=== PATIENT | female | born 1995 | race Caucasian/White ===

== ENCOUNTER 2018-02-23 11:35 | Emergency (ER) | payer OTHER ==
[~2018-02-23] VITALS: Ht 157.5 cm; Wt 61.4 kg
[2018-02-23 11:36] VITALS: TEMP 98.3
[2018-02-23 12:12] LABS: BASO % 0.5 % (0.0-2.0); EOS % 0.5 % (0-4.0); GRAN # 5.7 (1.4-6.5); GRAN % 63.8 % (42.2-75.2); HEMATOCRIT 33.6 % (35.0-45.0); LYMPH # 2.5 (1.2-3.4); LYMPH % 28.2 % (20.0-51.0); MEAN CELL VOLUME 83 fl (80.0-95.0); MEAN CORPUSCULAR HEMOGLOBIN 27 pg (26.0-32.0); MEAN CORPUSCULAR HGB CONC 33 g/dl (33.0-37.0); MEAN PLATELET VOLUME 9.9 fl (7.4-10.4); MONO # 0.6 (0.1-0.6); MONO % 6.7 % (1.7-9.3); PLATELET COUNT 233 K/mm3 (130-400); RED BLOOD COUNT 4.03 M/mm3 (4.10-5.30); REDCELL DISTRIBUTION WIDTH-CV 16.5 % (11.5-14.5)
[2018-02-23 12:19] LABS: COLLECTION METHOD CLEAN CATCH
[2018-02-23 12:25] LABS: MUCOUS Present /lpf; PH 7 (5-8); SQUAMOUS EPITHELIAL 0-2 /hpf; URINE APPEARANCE Hazy; URINE BACTERIA None Seen /hpf; URINE BILIRUBIN Negative (NEGATIVE); URINE BLOOD Negative (NEGATIVE); URINE COLOR Yellow; URINE GLUCOSE Negative (NEGATIVE); URINE KETONE Trace (NEGATIVE); URINE LEUKOCYTE ESTERASE Negative (NEGATIVE); URINE NITRATE Negative (NEGATIVE); URINE PROTEIN(semi-quant) Negative (NEGATIVE); URINE RBC 0-2 /hpf; URINE UROBILINOGEN Negative (NEGATIVE)
[2018-02-23 14:23] VITALS: BP 123/52; PULSE 80
== END 2018-02-23 14:24 | disposition home or self-care (01) ==
LOC: COL.ER 11:35
PROVIDERS: Physician Assistant
DX: O46.91 Antepartum hemorrhage, unspecified, first trimester (principal); O99.341 Other mental disorders complicating pregnancy, first trimester; O99.331 Smoking (tobacco) complicating pregnancy, first trimester; F90.9 Attention-deficit hyperactivity disorder, unspecified type; F32.9 Major depressive disorder, single episode, unspecified; G43.909 Migraine, unspecified, not intractable, without status migrainosus; F17.210 Nicotine dependence, cigarettes, uncomplicated; Z3A.01 Less than 8 weeks gestation of pregnancy
CPT/HCPCS: J2405; J7030

== ENCOUNTER 2018-03-06 17:38 | Emergency (ER) | payer OTHER ==
[~2018-03-06] VITALS: Ht 157.5 cm; Wt 59.1 kg
[2018-03-06 17:44] VITALS: TEMP 98.9
[2018-03-06 18:23] LABS: BASO % 0.3 % (0.0-2.0); EOS # 0.1 (0.0-0.7); EOS % 0.5 % (0-4.0); GRAN # 7.1 (1.4-6.5); GRAN % 72.7 % (42.2-75.2); HEMOGLOBIN 10.3 g/dl (12.0-15.0); LYMPH # 1.9 (1.2-3.4); LYMPH % 19.7 % (20.0-51.0); MEAN CELL VOLUME 84 fl (80.0-95.0); MEAN CORPUSCULAR HEMOGLOBIN 28 pg (26.0-32.0); MEAN CORPUSCULAR HGB CONC 34 g/dl (33.0-37.0); MEAN PLATELET VOLUME 10.5 fl (7.4-10.4); MONO # 0.6 (0.1-0.6); MONO % 6.4 % (1.7-9.3); PLATELET COUNT 209 K/mm3 (130-400); RED BLOOD COUNT 3.64 M/mm3 (4.10-5.30); REDCELL DISTRIBUTION WIDTH-CV 16.2 % (11.5-14.5)
[2018-03-06 18:24] LABS: HEMATOCRIT 30.5 % (35.0-45.0)
[2018-03-06] MEDS ORDERED: VITAMIN B650 MG PO (18:28)
[2018-03-06] MEDS ORDERED: UNISOM SLEEPGEL50 MG PO (18:28)
[2018-03-06] MEDS ORDERED: PHENERGAN25 MG RC ×2 (18:29→20:37)
[2018-03-06 18:39] LABS: ALBUMIN 3.7 gm/dL (3.5-5.0); BILIRUBIN,TOTAL 0.2 mg/dL (0.0-1.0); CALCIUM 8.9 mg/dL (8.4-10.2); CREATININE, serum 0.48 mg/dL (0.52-1.25); POTASSIUM 3.2 mmol/L (3.4-5.0); TOTAL PROTEIN 6.4 gm/dL (6.4-8.2)
[2018-03-06 18:55] VITALS: BP 91/68
[2018-03-06 19:04] LABS: COLLECTION METHOD CLEAN CATCH
[2018-03-06 19:18] LABS: MUCOUS Present /lpf; PH 6 (5-8); SQUAMOUS EPITHELIAL 0-2 /hpf; URINE APPEARANCE Hazy; URINE BACTERIA None Seen /hpf; URINE BILIRUBIN Negative (NEGATIVE); URINE BLOOD Negative (NEGATIVE); URINE COLOR Yellow; URINE GLUCOSE Negative (NEGATIVE); URINE KETONE Trace (NEGATIVE); URINE LEUKOCYTE ESTERASE Negative (NEGATIVE); URINE NITRATE Negative (NEGATIVE); URINE PROTEIN(semi-quant) 1+ (NEGATIVE); URINE UROBILINOGEN Negative (NEGATIVE)
[2018-03-06] MEDS ORDERED: PHENERGAN 25 TA25 MG PO (20:37)
[2018-03-06 21:00] VITALS: PULSE 70
== END 2018-03-06 21:00 | disposition home or self-care (01) ==
LOC: COL.ER 17:38
PROVIDERS: Emergency Medicine
DX: O21.9 Vomiting of pregnancy, unspecified (principal); O26.891 Other specified pregnancy related conditions, first trimester; Z3A.08 8 weeks gestation of pregnancy; E86.0 Dehydration
CPT/HCPCS: J0780; J1200; J2405; J7030

== ENCOUNTER → 2019-06-06 | Outpatient (CLI) | payer OTHER ==
[~2019-06-06] MED LIST: ALBUTEROL SULFAT3 M3 IH; CEPHALEXIN500 M1 PO; FLONASEALLERGY NS; PHENERGAN 25 TA25 MG PO; PHENERGAN25 MG RC; PYRIDIUM200 M1 PO; SKYLA13.5 MG IY; UNISOM SLEEPGEL50 MG PO; VITAMIN B650 MG PO
== END ==
LOC: COL.CARD 09:25
DX: G40.309 Generalized idiopathic epilepsy and epileptic syndromes, not intractable, without status epilepticus (principal); R41.89 Other symptoms and signs involving cognitive functions and awareness; G43.719 Chronic migraine without aura, intractable, without status migrainosus

== ENCOUNTER 2019-08-15 16:59 | Outpatient (CLI) | payer OTHER ==
[~2019-08-15] VITALS: Ht 152.4 cm; Wt 59.1 kg
[2019-08-15 17:05] VITALS: BP 108/69; PULSE 106; TEMP 98.1
[2019-08-15] MEDS ORDERED: PRENATAL PLUS PO (17:15)
[2019-08-15] MEDS ORDERED: REGLAN 10MG10 MG/TAB (17:15)
[2019-08-15] MEDS ORDERED: KEPPRA 500MG500 MG PO (17:17)
[2019-08-15 17:18] VITALS: BP 108/69; PULSE 106; TEMP 98.1
[2019-08-15] MEDS ORDERED: CARAFATE 1GM1 G (17:32)
[2019-08-15] MEDS ORDERED: SEROQUEL 1100 MG/TAB PO (17:32)
[2019-08-15] MEDS ORDERED: ATARAX 25MG25 MG/TAB PO (17:33)
[2019-08-15] MEDS ORDERED: FLEXERIL 1010 MG/TAB PO (17:33)
--- NOTE | 2019-08-15 17:37 | NUR ---
1705 PATIENT HERE FOR COMPLAINTS OF FEELING TONS OF VAGINAL PRESSURE. ASSESSMENT COMPLETED. EFM ON FHT 118 BABY VERY ACTIVE. ACCELERATIONS NOTED. PATIENT TRANSFERRING CARE HERE FROM [place]. SVE /-. NO CONTRACTIONS ON MONIOTR OR PALPATED. DR BURK CALLED AND UPDATED AND ORDERS TO RECHECK IN ONE HOUR AND DISMISS IF NO CHANGES.
[2019-08-15 17:57] VITALS: PULSE 82
--- NOTE | 2019-08-15 17:57 | NUR ---
1800 SVE UNCHANGED. ALL DISCHARGE INSTRUCTIONS GIVEN TO PATIENT WITH VERBAL UNDERSTANDING NOTED. DENIES NEEDS
[2019-08-16] MEDS ORDERED: DESYREL 100MG100 MG PO ×2 (23:31→23:32)
[2019-08-16] MEDS ORDERED: DESYREL 50MG50 MG PO (23:31)
== END 2019-08-15 18:05 | disposition home or self-care (01) ==
LOC: LDRO 16:59 → LDR 17:08 → LDRO 18:05
DX: O62.9 Abnormality of forces of labor, unspecified (principal); O26.893 Other specified pregnancy related conditions, third trimester; R10.2 Pelvic and perineal pain; Z3A.36 36 weeks gestation of pregnancy; F17.210 Nicotine dependence, cigarettes, uncomplicated
CPT/HCPCS: OP

== ENCOUNTER 2019-08-16 23:01 | Outpatient (CLI) | payer OTHER ==
[~2019-08-16 23:01] MED LIST changes: +ATARAX 25MG25 MG/TAB PO; +CARAFATE 1GM1 G; +FLEXERIL 1010 MG/TAB PO; +KEPPRA 500MG500 MG PO; +PRENATAL PLUS PO; +REGLAN 10MG10 MG/TAB; +SEROQUEL 1100 MG/TAB PO
--- NOTE | 2019-08-16 23:10 | NUR ---
G3L2. 37-0. Wheeled to LDR 6. Clean gown on. EFM and TOCO explained and applied. Pt states she was here yesterday and was sent home. She states she is just having a lot of pressure that is come and go and states that she belives it is contractions. Pt states she was induced with her other 2 kids with "pain medicine" so she does not know what contractions feel like. Pt also reports not having custody of her other 2 kids, states "they were taken from her because when her 5 month, old at the time, was put in the hospital for failure to thrive, she did not gain weight in one week. Pt states she tried to tell them to change her formula but they did not until she was in foster care." SVE /2. Plan of care explained to pt who verblaizes understanding. Call light within reach. 2356: updated on pts status. See physican notification. 0005: report given to Bishnu MORELAND.
[2019-08-16 23:30] VITALS: BP 100/72; PULSE 102; TEMP 98.3
[2019-08-16] MEDS ORDERED: DESYREL 100MG100 MG PO ×2 (23:31→23:32)
[2019-08-16] MEDS ORDERED: DESYREL 50MG50 MG PO (23:31)
[2019-08-17 00:30] VITALS: BP 109/63; PULSE 85
--- NOTE | 2019-08-17 00:30 | NUR ---
Repeat SVE with minimal changes noted. Off monitor, up to bathroom.
== END 2019-08-17 01:15 | disposition home or self-care (01) ==
LOC: LDRO 23:01
DX: O62.9 Abnormality of forces of labor, unspecified (principal); O26.893 Other specified pregnancy related conditions, third trimester; R10.2 Pelvic and perineal pain; Z3A.37 37 weeks gestation of pregnancy

== ENCOUNTER 2019-08-17 21:00 | Outpatient (CLI) | payer OTHER ==
[~2019-08-17] VITALS: Ht 152.4 cm; Wt 68.2 kg
[~2019-08-17 21:00] MED LIST changes: +DESYREL 100MG100 MG PO; +DESYREL 50MG50 MG PO
--- NOTE | 2019-08-17 21:00 | NUR ---
Patient ambulatory to unit accompanied by spouse. States she is here for contractions. Was seen in office today and her membranes were swept. Patient denies all covid questions. Patient states baby has been active, denies leaking of fluid and vaginal bleeding but states she is losing her mucous plug. SVE /-2, white mucous noted on glove. Assessment completed.
[2019-08-17 21:09] VITALS: BP 126/75; PULSE 131; TEMP 98.4
[2019-08-17 21:30] VITALS: BP 108/72; PULSE 113
[2019-08-17 22:00] VITALS: BP 92/50; PULSE 96
--- NOTE | 2019-08-17 22:38 | NUR ---
patient states that she feels contractions in her lower back but they are not as frequent. Patient resting on her side. Will recheck cervix at 2300.
--- NOTE | 2019-08-17 23:00 | NUR ---
SVE /-2. No change from first SVE at 2100. Patient resting on far right side and states she is not feeling contractions. Dr. Young called and order to discharge home. 0: Patient off monitors and discharge instructions reviewed with patient. Patient upset she is going home and not staying to delivery. States that she never progresses past 5 cm with any of her deliveries and has to be induced. Explained to patient that at this time no medical reason to induce her. Discharge instructions including kick count reviewed. Patient off unit at 2320.
[2019-08-17 23:10] VITALS: BP 97/60; PULSE 96
== END 2019-08-17 23:20 | disposition home or self-care (01) ==
LOC: LDRO 21:00 → LDR 21:00 → LDRO 23:20
DX: O62.9 Abnormality of forces of labor, unspecified (principal); Z3A.37 37 weeks gestation of pregnancy
CPT/HCPCS: OP

== ENCOUNTER 2019-08-18 06:13 | Inpatient (IN) | payer OTHER ==
[~2019-08-18] VITALS: Ht 152.4 cm; Wt 68.2 kg
[2019-08-18] VITALS (21 sets, daily range): BP systolic 85–115; BP diastolic 52–76; PULSE 65–106; TEMP 97.8–97.9
--- NOTE | 2019-08-18 07:04 | NUR ---
Pt arrives to unit via wheelchair with spouse at 0615. Pt changed into gown and positioned self on left side lying flat in bed. EFM explained and placed, vitals taken, assessment done. Pt states she has been having contractions for 3 days, but that they started gettting stronger this morning and are now every 2-4 minutes. Pt also states she has been having vaginal bleeding since 0500, having some each time she wipes after going to the bathroom. Pt showed pictures from her phone of slightly blood tinged mucous on toilet paper. Pt denies leaking of fluid and reports good movement. SVE at 0652 5/80/-2. Mucous present on glove after exam, no blood noted. Pt visibly uncomfortable with contractions, contractions mild on palpation.
[2019-08-18 09:27] LABS: BASO # 0.1 (0.0-0.2); BASO % 0.3 % (0.0-2.0); EOS # 0.1 (0.0-0.7); EOS % 0.6 % (0-4.0); GRAN # 14.9 (1.4-6.5); LYMPH # 3.4 (1.2-3.4); LYMPH % 17.1 % (20.0-51.0); MEAN CELL VOLUME 86 fl (80.0-100.0); MEAN CORPUSCULAR HGB CONC 32 g/dl (33.0-37.0); MEAN PLATELET VOLUME 9.6 fl (7.4-10.4); MONO # 1.2 (0.1-0.6); MONO % 6.1 % (1.7-9.3); PLATELET COUNT 296 K/mm3 (130-400); RED BLOOD COUNT 3.37 M/mm3 (4.10-5.30); REDCELL DISTRIBUTION WIDTH-CV 14.7 % (11.5-14.5)
[2019-08-18 09:29] LABS: HEMATOCRIT 28.8 % (37.0-47.0); HEMOGLOBIN 9.3 g/dl (12.5-16.0); MEAN CORPUSCULAR HEMOGLOBIN 28 pg (27.0-31.0)
--- NOTE | 2019-08-18 09:31 | NUR ---
COVID swab done.
[2019-08-18 09:37] LABS: TRICYCLIC ANTIDEPRESS URINE NEGATIVE
--- NOTE | 2019-08-18 10:21 | NUR ---
0800 - Pt requesting epidural. IV started in RH with LR infusing per protocol. Seun started per Dr. Cosme for unknown GBS. 0835 - Pt feels need to "poop". SVE /-1, pt accompanied to bathroom. 0848 - Royer Felix CRNA to pt bedside. Pt repositioned for epidural placement. 0900 - Test dose administered for epidural. See anesthesia notes. Pt repositioned for comfort. 0908 - Dr. Cosme to pt bedside. SVE /0, AROM at this time, clear fluid noted.
--- NOTE | 2019-08-18 12:52 | NUR ---
1030 - Pt states she is feeling pressure with contractions. SVE 8/100/0. Dr. Cosme notified. Pt feeling discomfort with contractions and moving on bed. Difficulty tracing FHT at this time. RN at bedside. 1118 - Pt vomiting and feeling constant pressure in rectum. SVE 10/100/+1. Dr. Cosme notified. Nursery RN notified. FHT WNL with recurrent variable decelerations with contractions. 1130 - Dr. Cosme at pt bedside. Pt and room prepped for delivery. Ze Christian RN of nursery at bedside. Pt bladder drained by Dr. Cosme at 1133. Pt pushing with contractions. 1138 - Male delivered spontaneously by Dr. Cosme and placed on mother's abdomen. Care of infant transferred to Ze Christian RN of nursery. 1142 - Placent delivered spontaneously by Dr. Cosme, see phsycian notes. Perineum intact. Pericare provided, ice pack placed, pt repositioned for comfort. Cord stat collected, cord blood collected.
--- NOTE | 2019-08-18 21:18 | NUR ---
HS medication list including dosages verified with pt. Pt verifies and requests.
--- NOTE | 2019-08-18 23:00 | NUR ---
VS obtained at this time. Resting in bed while eating chips. Patient able to sit up and move about in bed. BP 85/55 with a HR of 97. Bleeding minimal, fundus firm. Noted to have heavy easy with slightly slurred speech. Motrin administered, to go to sleep.
--- NOTE | 2019-08-18 23:34 | NUR ---
Assumed care at this time.
[2019-08-19 02:00] VITALS: BP 86/48; PULSE 76; TEMP 97.8
[2019-08-19 05:00] VITALS: BP 92/51; PULSE 81; TEMP 98.2
[2019-08-19 07:07] LABS: HEMATOCRIT 24.9 % (37.0-47.0)
[2019-08-19] MEDS ORDERED: IBU600 MG PO (08:30)
[2019-08-19] MEDS ORDERED: FOLIC ACID 11 MG/TA1 PO (08:31)
[2019-08-19 09:39] VITALS: BP 89/56; PULSE 70; TEMP 98.1
--- NOTE | 2019-08-19 10:01 | NUR ---
Energy Risk Management Analyst responded to a social science manager consult to the OB for the patient due to not having custody of her 1st and 2nd child. SWs met with the patient and the patient's Levy. The patient gave persmission for Manjinder to stay in the room. The patient lives on [address] with Levy. Her two daughters, ages nearly 2 and nearly 1 were removed from the home for failure to thrive in February. The patient and Levy state that [facility] did not allow for them to change formulas and children were not gaining weight. Once the children were removed from the home they began to gain weight due to changing of formula. Levy states this is the reason they changed their care to [place] providers because they were not happy with [facility] care. They have court on September 13. The patient states she has finished all the parenting classes that the [place] worker wanted her to complete and they should get the girls back in September. They have all the supplies they need and she signed up for [facility] this day. They have support from their families and have many family memebers who live in the area. 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 The patient has a significant history of mental health disorders and seizures. She states she receives mental health services from [facility]. She goes to talk therapy once a week with Chinedu Doran and has medication management appointments once a month. She is currently on seizure medications too. The patient states she get seizures during times of high stress; therapist is teaching coping skills and she also attends a PTSD class. The patient provided her family caseworker phone number and states she will visit her in this hospital. Ariana Young ([phone]). EDD contacted Ariana and confirmed they do have a court in September. Ariana reports she will try to get the girls back home mid-October. Ariana and [place] [facility] [place] workers to visit the patient this day. EDD contacted pump house operator and the patient's nurse and approved this visit. Ariana reports [facility] is involved as of yesterday, 08/17. Ariana provided DCF Worker contact information. Jenn Lopez ([phone]). EDD contacted Jenn she states she is filling out an affidavid to place the patient's new born in [facility] custody. The plan would be for [facility] to have custody of the child but leave the child in the home. However, a molder pipe covering will have to make that call. Jenn will need to bring the affidavid paperwork to the patient. EDD provided ED entrance with DCF worker name. EDD gave [place] social science manager contact information. EDD collaborated the above information with the patient's nurse.
--- NOTE | 2019-08-19 15:00 | NUR ---
1400 CASE WORKERS AT BEDSIDE.
--- NOTE | 2019-08-19 16:34 | NUR ---
Dish Carrier received a phone call from Jenn Zapata [facility] Dish Carrier who advised is being placed in DCF custody but will remain in the parent's home. Jenn states infant will discharge with parents but will have court oversight. Jenn and her internal affairs commander will be visiting with patient about this information. EDD spoke with ED screener to advise them of visit from [facility]. EDD also collaborated with MERLY Slaughter about the above information. Kasandra reports she will obtain copy of court documents and will place copy on chart.
[2019-08-19 17:00] VITALS: BP 100/64; PULSE 72; TEMP 97.8
[2019-08-19 20:13] VITALS: BP 97/52; PULSE 67; TEMP 98.7
[2019-08-20 09:00] VITALS: BP 93/49; PULSE 83; TEMP 98.3
[2019-08-20] MEDS ORDERED: FERROUSAL325 MG PO (09:29)
--- NOTE | 2019-08-20 14:57 | NUR ---
1230 MOTHER VERY SLEEPY MOST OF AM AND FATHER DID ALL BABY BOTTLE FDGS.
== END 2019-08-20 12:30 | disposition home or self-care (01) | DRG 806 ==
LOC: LDRO 06:13 → LDR 07:37 → OB 07:37
PROVIDERS: ADMIT Obstetrics & Gynecology
PROC: 10E0XZZ Delivery of Products of Conception, External Approach (ICD-10-PCS; principal; 2019-08-18)
DX: O99.02 Anemia complicating childbirth (principal); O99.354 Diseases of the nervous system complicating childbirth; Z37.0 Single live birth; F25.0 Schizoaffective disorder, bipolar type; G40.909 Epilepsy, unspecified, not intractable, without status epilepticus; G47.00 Insomnia, unspecified; D64.9 Anemia, unspecified; O99.824 Streptococcus B carrier state complicating childbirth; O99.344 Other mental disorders complicating childbirth; F41.9 Anxiety disorder, unspecified; O99.284 Endocrine, nutritional and metabolic diseases complicating childbirth; E03.9 Hypothyroidism, unspecified; O99.52 Diseases of the respiratory system complicating childbirth; J45.909 Unspecified asthma, uncomplicated; O99.334 Smoking (tobacco) complicating childbirth; Z3A.37 37 weeks gestation of pregnancy; Z86.14 Personal history of Methicillin resistant Staphylococcus aureus infection
CPT/HCPCS: J2540; J2590; J7120

== ENCOUNTER → 2019-11-07 | Outpatient (CLI) | payer OTHER ==
[~2019-11-07] MED LIST changes: +FERROUSAL325 MG PO; +FOLIC ACID 11 MG/TA1 PO; +IBU600 MG PO
== END ==
LOC: COL.RAD 11:38
DX: K52.9 Noninfective gastroenteritis and colitis, unspecified (principal)

== ENCOUNTER → 2019-12-05 | Outpatient (CLI) | payer OTHER | LOC: COL.RAD 09:19 | DX: R19.7 Diarrhea, unspecified (principal); R11.10 Vomiting, unspecified; R10.11 Right upper quadrant pain | CPT/HCPCS: A9537; J2805 ==

== ENCOUNTER 2023-11-26 14:05 | Emergency (ER) | payer SELFPAY ==
[~2023-11-26] VITALS: Ht 152.4 cm; Wt 64.1 kg
[~2023-11-26 14:05] MED LIST changes: +PROTONIX 40MG T40 MG PO; +ZOFRAN ODT4 MG PO
[2023-11-26 16:28] LABS: BASO # 0.1 K/mm3 (0.0-0.2); BASO % 0.7 % (0.0-2.0); EOS % 0.4 % (0.0-4.0); GRAN # 6.3 K/mm3 (1.4-6.5); GRAN % 66.3 % (42.2-75.2); HEMOGLOBIN 12.5 g/dl (12.5-16.0); LYMPH # 2.5 K/mm3 (1.2-3.4); LYMPH % 26.6 % (20.0-51.0); MEAN CELL VOLUME 87 fl (80.0-100.0); MEAN CORPUSCULAR HEMOGLOBIN 32 pg (27-31); MEAN CORPUSCULAR HGB CONC 36 g/dl (33.0-37.0); MEAN PLATELET VOLUME 10.1 fl (7.4-10.4); MONO # 0.6 K/mm3 (0.1-0.6); MONO % 5.8 % (1.7-9.3); PLATELET COUNT 250 K/mm3 (130-400); RED BLOOD COUNT 3.96 M/mm3 (4.10-5.30); REDCELL DISTRIBUTION WIDTH-CV 12.1 % (11.5-14.5)
[2023-11-26 16:30] LABS: HEMATOCRIT 34.3 % (37.0-47.0)
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
[2023-11-26 16:51] LABS: ALANINE AMINOTRANSFERASE 14 U/L (0-55); ALBUMIN 4.1 g/dL (3.5-5.0); ALKALINE PHOSPHATASE 69 U/L (40-150); ANION GAP 11 mmol/L (7-16); AST,SGOT 12 U/L (5-34); BILIRUBIN,TOTAL 0.4 mg/dL (0.2-1.2); BLOOD UREA NITROGEN 11 mg/dL (7-19); CALCIUM 9.2 mg/dL (8.4-10.2); CHLORIDE 109 mEq/L (98-107); CREATININE, serum 0.75 mg/dL (0.57-1.11); GLUCOSE 97 mg/dL (70-99); POTASSIUM 3.4 mEq/L (3.5-4.5); SODIUM 141 mEq/L (136-145); TOTAL PROTEIN 6.3 g/dl (6.2-8.1)
[2023-11-26 17:26] LABS: ALCOHOL(ethanol),MEDICAL < 10 mg/dL (0-10)
[2023-11-26 17:42] LABS: COLLECTION METHOD CLEAN CATCH
[2023-11-26 18:05] LABS: PH 5.5 (5.0-8.5); URINE APPEARANCE CLOUDY (CLEAR/HAZY); URINE BLOOD NEGATIVE (NEGATIVE); URINE COLOR Dark Yellow (YELLOW); URINE GLUCOSE NEGATIVE (NEGATIVE); URINE KETONE 2+ (NEGATIVE); URINE NITRATE NEGATIVE (NEGATIVE); URINE PROTEIN(semi-quant) TRACE (NEGATIVE); URINE UROBILINOGEN 0.2 E.U/dL (0.2-1.0)
[2023-11-26 18:18] LABS: SQUAMOUS EPITHELIAL 0-2 /hpf (0-10); URINE BACTERIA MANY /hpf (NONE SEEN); URINE RBC 0-2 /hpf (0-2)
[2023-11-26 18:27] LABS: TRICYCLIC ANTIDEPRESS URINE NEGATIVE (NEGATIVE)
[2023-11-26] MEDS ORDERED: Nicotine 21 MG DAILY PATCH TD SCH (20:06)
[2023-11-26] MEDS ORDERED: LORazepam 0.5 MG TAB PO PRN (20:15)
[2023-11-27 06:30] VITALS: TEMP 98.5
[2023-11-27 14:19] VITALS: BP 138/87; PULSE 106
[2023-11-27] MEDS ORDERED: LORazepam 0.5 MG TAB PO ONE (14:30)
== END 2023-11-27 14:27 ==
LOC: COL.ER 14:05
PROVIDERS: Personal Emergency Response Attendant
DX: F32.A Depression, unspecified (principal); R45.851 Suicidal ideations

== ENCOUNTER 2023-12-12 06:31 | Emergency (ER) | payer SELFPAY ==
[~2023-12-12] VITALS: Ht 160 cm; Wt 72.7 kg
[2023-12-12] MEDS ORDERED: Ibuprofen 600 MG TAB PO ONE (07:30)
[2023-12-12 08:15] LABS: BASO # 0.1 K/mm3 (0.0-0.2); BASO % 0.8 % (0.0-2.0); EOS # 0.1 K/mm3 (0.0-0.7); GRAN # 4.7 K/mm3 (1.4-6.5); GRAN % 59.7 % (42.2-75.2); HEMOGLOBIN 11.5 g/dl (12.5-16.0); LYMPH # 2.5 K/mm3 (1.2-3.4); LYMPH % 32.5 % (20.0-51.0); MEAN CELL VOLUME 90 fl (80.0-100.0); MEAN CORPUSCULAR HEMOGLOBIN 31 pg (27-31); MEAN CORPUSCULAR HGB CONC 34 g/dl (33.0-37.0); MEAN PLATELET VOLUME 9.6 fl (7.4-10.4); MONO # 0.5 K/mm3 (0.1-0.6); MONO % 5.9 % (1.7-9.3); PLATELET COUNT 247 K/mm3 (130-400); RED BLOOD COUNT 3.75 M/mm3 (4.10-5.30); REDCELL DISTRIBUTION WIDTH-CV 12.5 % (11.5-14.5)
[2023-12-12 08:18] LABS: HEMATOCRIT 33.7 % (37.0-47.0)
[2023-12-12 08:37] LABS: ALANINE AMINOTRANSFERASE 46 U/L (0-55); ALBUMIN 3.5 g/dL (3.5-5.0); ALKALINE PHOSPHATASE 88 U/L (40-150); ANION GAP 8 mmol/L (7-16); AST,SGOT 21 U/L (5-34); BILIRUBIN,TOTAL 0.3 mg/dL (0.2-1.2); BLOOD UREA NITROGEN 11 mg/dL (7-19); CALCIUM 9.1 mg/dL (8.4-10.2); CHLORIDE 112 mEq/L (98-107); CREATININE, serum 0.74 mg/dL (0.57-1.11); GLUCOSE 100 mg/dL (70-99); POTASSIUM 4.2 mEq/L (3.5-4.5); SODIUM 141 mEq/L (136-145); TOTAL PROTEIN 6.1 g/dl (6.2-8.1)
[2023-12-12 08:38] LABS: ALCOHOL(ethanol),MEDICAL < 10 mg/dL (0-10); SALICYLATE < 5.0 mg/dL (15.0-30.0)
[2023-12-12 09:16] LABS: TSH w REFLEX 0.733 uIU/mL (0.350-4.940)
[2023-12-12 11:12] LABS: COLLECTION METHOD CLEAN CATCH
[2023-12-12 11:21] LABS: PH 5.5 (5.0-8.5); URINE APPEARANCE CLEAR (CLEAR/HAZY); URINE BLOOD 1+ (NEGATIVE); URINE COLOR YELLOW (YELLOW); URINE GLUCOSE NEGATIVE (NEGATIVE); URINE KETONE NEGATIVE (NEGATIVE); URINE NITRATE NEGATIVE (NEGATIVE); URINE PROTEIN(semi-quant) NEGATIVE (NEGATIVE); URINE UROBILINOGEN 0.2 E.U/dL (0.2-1.0)
[2023-12-12 11:27] LABS: TRICYCLIC ANTIDEPRESS URINE NEGATIVE (NEGATIVE)
[2023-12-12] MEDS ORDERED: LORazepam 0.5 MG TAB PO PRN (20:00)
[2023-12-12] MEDS ORDERED: traZODone 100 MG TAB PO ONE (20:00)
[2023-12-13] MEDS ORDERED: LORazepam 0.5 MG TAB PO ONE (04:00)
[2023-12-13] MEDS ORDERED: Sucralfate 1 G TAB PO SCH (09:00)
[2023-12-13] MEDS ORDERED: traZODone 100 MG TAB PO SCH (09:00)
[2023-12-13 09:08] VITALS: TEMP 97.6
[2023-12-13] MEDS ORDERED: OLANZapine 5 MG Orally-Disinteg TAB PO ONE (12:45)
[2023-12-13 18:45] VITALS: BP 114/62; PULSE 77
== END 2023-12-13 18:45 ==
LOC: COL.ER 06:31
PROVIDERS: Emergency Medicine
DX: R45.851 Suicidal ideations (principal); R11.0 Nausea; F17.290 Nicotine dependence, other tobacco product, uncomplicated; Z91.040 Latex allergy status; Z86.59 Personal history of other mental and behavioral disorders